=== PATIENT | male | born 1945 | race Caucasian/White ===

== ENCOUNTER 2018-02-11 09:59 | Inpatient (IN) ==
[~2018-02-11 09:59] MED LIST: ceFAZolin 1,000 MG, Sodium Chloride IRRigation 1,000 ML IR ONE
[2018-02-11] MEDS ORDERED: Dexamethasone 4 MG/ML VIAL ONE (10:14)
[2018-02-11] MEDS ORDERED: Ondansetron 4 MG/2 ML VIAL ONE (10:14)
[2018-02-11] MEDS ORDERED: Lidocaine -MPF 4% 5 ML AMPUL ONE (10:14)
[2018-02-11] MEDS ORDERED: Lidocaine -MPF 2% 2 ML VIAL ONE (10:14)
[2018-02-11] MEDS ORDERED: *HR* Succinylcholine 200 MG/10 ML VIAL IVP ONE (10:14)
[2018-02-11] MEDS ORDERED: CeFAZolin Syr 2,000MG/20 ML 2,000 MG/20 ML SYRINGE IVPB ONE (10:15)
[2018-02-11] MEDS ORDERED: *HR* Remifentanil 2 MG VIAL IVP ONE (10:15)
[2018-02-11] MEDS ORDERED: Ringers Solution, Lactated 1,000 ML IVC SCH (10:15)
[2018-02-11] MEDS ORDERED: *HR* FentaNYL (PF) 100 MCG/2 ML VIAL ONE (10:15)
[2018-02-11] MEDS ORDERED: *HR* Propofol 200 MG/20 ML VIAL IVP ONE (10:15)
[2018-02-11] MEDS ORDERED: *HR* Phenylephrine 10 MG/ML VIAL ONE (10:16)
[2018-02-11] MEDS ORDERED: Famotidine 20 MG/2 ML VIAL IVP ONE (10:20)
[2018-02-11] MEDS ORDERED: Acetaminophen IV 1,000 MG/100 ML INFUS..BTL IVPB ONE (10:21)
--- NOTE | 2018-02-11 10:23 | Anesthesia Evaluation PreOp ---
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: Other (B-carotid stenosis) Other Medical History: Denies Any Significant HX, Other (Hx Prostate Ca s/p radiation tx) Anesthesia History: No Prior Anesthetic Complications, Past Anesthesia ( Orthopedic repairs, Skin grafts, Fem-Fem bypass, Fem-Pop bypass) Alcohol Use: none Drug use: marijuana Medications and Allergies Aspirin [Ecotrin] 325 mg PO DAILY 01/23/18 [History] Naproxen [Naprosyn] 250 mg PO BID 01/23/18 [History] Tamsulosin [Flomax] 0.4 mg PO DAILY 01/23/18 [History] hydroCHLOROthiazide [Hydrochlorothiazide] 25 mg PO DAILY 01/23/18 [History] 3 Allergy/AdvReac Type Severity Reaction Status Date / Time No Known Allergies Allergy Verified 01/23/18 06:49 - Meds/Allergy Pre-op Review Medications Reviewed: Yes Allergies Reviewed: Yes Beta Blockers on Current Med List: No Anesthesia Results - Labs Laboratory Tests 02/10/18 02/10/18 02/10/18 17:42 17:42 17:42 WBC 7.3 Hgb 12.6 L Hct 36.8 L Plt Count 277 PT 12.0 INR 1.1 APTT 33.5 Sodium 140 Potassium 4.3 Chloride 106 Carbon Dioxide 30 H BUN 21 Creatinine 0.79 Est GFR ( Amer) > 60 Glucose 100 - Imaging EKG: image reviewed (EKG dated 01/22/2018 - 48bpm SB, incomplete RBBB, septal infarct age undetermined) Anesthesia Exam O2 Sat Height 1.8 m Height 1.8 m Weight 68.039 kg Weight 68.039 kg O2 Sat by Pulse Oximetry 99 Vital Signs Temp Pulse Resp BP Pulse Ox 97.9 F 47 16 164/66 99 02/11/18 10:19 02/11/18 10:19 02/11/18 10:19 02/11/18 10:19 02/11/18 10:19 Height: 5'11" Weight: 150# BMI = 21 NPO (# of Hours): MNOc Pain Scale Used: Numeric (1 - 10) - HEENT Pupil (Motor): Pupils equal, EOMI Mallampati: II Teeth: Missing, Poor dentition ( VERY poor dentition with multiple broken, blackened, poorly aligned, wiggly teeth) Oral Opening: Less than or equal to 3 - 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 LOC: Oriented 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 Magdalena Moya MD
[2018-02-11] MEDS ORDERED: Heparin 1,000 UNITS/500 mL 500 ML ONE (10:45)
[2018-02-11] MEDS ORDERED: *HR* Promethazine 25 MG/ML VIAL IVP PRN (12:02)
[2018-02-11] MEDS ORDERED: *HR* OxyCODONE Immed Rel 5 MG TABLET PO PRN (12:02)
[2018-02-11] MEDS ORDERED: *HR* Meperidine 25 MG/ML SYRINGE IVP PRN (12:02)
[2018-02-11] MEDS ORDERED: Ondansetron 4 MG/2 ML VIAL IVP ONE ×2 (12:02→12:45)
[2018-02-11] MEDS ORDERED: Lidocaine -MPF 1% 5 ML AMPUL ONE (12:52)
--- NOTE | 2018-02-11 12:54 | History & Physical Report ---
Date of Encounter: 02/11/18 Time of Encounter: 12:40 24 Hour HP Update - Instructions Instructions: If the History and Physical is less than 30 days old and was completed prior to A.M. admission and or procedure and has NOT been updated on calendar day of procedure please complete this update prior to performing procedure. - Update Patient reports changes in Medical Condition: No Changes in examination, assessment, or condition: No Changes in Medication: No Preop tests/diagnostics Reviewed: Yes Surgery Remains Indicated: Yes Consent for Planned Operative Procedure(s) Verified: Yes - Pre-Operative Checklist Preoperative Checklist Indicated: Yes Prophylactic Antibiotic Ordered: Yes Home Medications Include Beta Radha: No Beta Radha Taken Today (Day of Surgery): No Beta Radha Taken Yesterday (Day Prior to Surgery): No Is VTE Prophylaxis Indicated?: Yes
[2018-02-11] MEDS ORDERED: EPHEDrine 50 MG/ML VIAL ONE (13:47)
[2018-02-11] MEDS ORDERED: *HR* Heparin 5,000 UNIT/ML VIAL ONE (14:05)
--- NOTE | 2018-02-11 16:05 | Operative Note ---
Date of procedure: 02/11/18 Pre-op diagnosis: bilateral carotid disease Post-op diagnosis: same Procedure: left carotid endarterectomy with 8 Fr shunt and bovine patch angioplasty Complications: 0 Anesthesia: GETA Surgeon: Oleg Astorga Was there an assistant product manager present: No Estimated blood loss (cc): 100 Specimen: 0 Condition: stable Disposition: PACU Procedure in Detail: History Melo Dawson is a 72-year-old white male who was seen in consultation because of an abnormal carotid duplex scan. The patient had an attempted carotid angiogram but this was not completed due to anatomic difficulties due to the femoral- femoral bypass graft. He then went on to have a CT and exam of the neck. This demonstrated an 85% left internal carotid artery stenosis. The patient had a 60 % right carotid stenosis. The patient now comes the operating room for left carotid surgery. Procedure After informed consent was obtained the patient was taken to the operating room. General endotracheal anesthesia was established under arterial line pressure monitoring. The left neck was sterilely prepped and draped. A timeout protocol was observed. An oblique incision was then made anterior to the anterior border of the left sternocleidomastoid muscle. Dissection was carried down to the carotid sheath. This was then opened. The nerve structures were identified and preserved. The carotid artery and its branches were selectively dissected and controlled with vessel loops. 5000 units heparin was then given intravenously. A 3 minute delay was observed. Then the internal carotid artery was clamped and then this was followed by the external and the common carotid artery. A longitudinal arteriotomy with 11 blade knife and Lay scissors was made over the distal common carotid artery with extension through the bulb into the internal carotid. An 8 Romansh shunt was then inserted atraumatically. Patency of the shunt was confirmed by the use of intraoperative Doppler. Inspection of the plaque revealed a soft heterogeneous plaque that was extensive in the bulbar area and proximal internal carotid artery. The dissection was begun at the distal aspect of the common carotid artery. A dissection plane was established circumferentially and then this was carried proximally and distally. The orifice of the superior thyroid and external carotid artery were endarterectomized. The endarterectomy was carried up on into the internal carotid. No tacking sutures were necessary. The bed of the vessel was then inspected. This area was irrigated with a copious amount of heparinized saline. A bovine pericardial patch angioplasty was then performed and this was sewn into position using 2 6-0 Prolene sutures. Leaving a small space open on the suture line the shunt was clamped and divided and removed. The final few sutures were placed. The internal carotid artery was allowed to backflush and was reclamped. Then the external and common carotid arteries were opened. The internal was then finally reopened. There is no hemodynamic distress with this maneuver. Excellent pulses and Doppler signals were identified throughout the carotid system. The wound was then irrigated with antibiotic-containing solution. Hemostasis was achieved. A superficial cervical block using half percent Marcaine was performed. The wound was then closed in layers using absorbable suture. There were no intraoperative complications. The patient tolerated the procedure well. The patient was extubated on the operating room table and was found to be neurologically intact. He was then taken to the recovery room in stable condition.
--- NOTE | 2018-02-11 17:00 | Anesthesia Evaluation Post Op ---
Date of Encounter: 02/11/18 Time of Encounter: 16:59 - Vital Signs Vital Signs: Vital Signs/O2 Sat/Glucose, Most Recent Temp Pulse Resp BP Pulse Ox 97.3 F L 61 16 185/85 97 02/11/18 16:36 02/11/18 16:46 02/11/18 16:46 02/11/18 16:46 02/11/18 16:46 - Lungs Lungs: Clear Ascult./Percussion - Airway Airway: Non-obstructed - Cardiovascular Regular Rate, Baseline Rhythm - Mental Status Mental Status: Alert & Oriented, Answers Appropriately - Pain Pain Scale: 0 Pain Scale used: Numeric (1 - 10) - Nausea Vomiting Nausea Vomiting: Not Present - Hydration Hydration: Tolerates oral liquids, Corado catheter Notes: 02/11/18 17:00 naac - Discharge PostOp Status: Transfer Patient to floor
[2018-02-11] MEDS ORDERED: *HR* HYDROcodone/Acet 5/325 mg TABLET PO PRN (17:22)
[2018-02-11] MEDS ORDERED: Acetaminophen 325 MG TABLET PO PRN (17:22)
[2018-02-11] MEDS ORDERED: Naloxone 0.4 MG/ML INJ IVP PRN (17:22)
[2018-02-11] MEDS ORDERED: *HR* Labetalol 20 MG/4 ML SYRINGE IVP PRN (17:22)
[2018-02-11] MEDS: Ondansetron 4 MG/2 ML VIAL IVP PRN (20:32)
[2018-02-12] MEDS: Ondansetron 4 MG/2 ML VIAL IVP PRN (03:49)
[2018-02-12 06:34] LABS: Basophils % 0.2 %; Hematocrit 33.3 % (37.5-50.1); Hemoglobin 11.7 g/dL (12.9-16.9); Immature Granulocytes % 0.3 % (0-4); Lymphocytes # 1.5 K/mcL (0.6-4.6); Lymphocytes % 9.9 %; Mean Corpuscular HGB Conc 35.1 g/dL (31.6-35.5); Mean Corpuscular Hemoglobin 31.1 pg (28.0-33.3); Mean Corpuscular Volume 88.6 fL (83.0-100.0); Mean Platelet Volume 11.5 fL (9.4-12.4); Monocytes # 1.5 K/mcL (0.0-1.3); Monocytes % 10.3 %; Neutrophils # 11.8 K/mcL (1.6-8.9); Platelet Count 287 K/mcL (140-400); Red Blood Count 3.76 M/mcL (4.19-5.50); Red Cell Distribution Width 13.6 % (11.5-14.5); Segmented Neutrophils % 79.3 %
[2018-02-12 06:56] LABS: Blood Urea Nitrogen 23 mg/dL (8-23); Calcium 9.2 mg/dL (8.6-10.3); Carbon Dioxide 25 mEq/L (23-29); Chloride 103 mEq/L (98-107); Glucose 130 mg/dL (70-105); Osmolality,Calculated 289 (280-300); Potassium 3.2 mEq/L (3.5-5.1); Sodium 137 mEq/L (136-145)
[2018-02-12 07:42] LABS: BUN/Creatinine Ratio 39 (6-26); eGFR For Non-African Americans > 60 (> 60)
[2018-02-12] MEDS ORDERED: Ondansetron 4 MG/2 ML VIAL IVP PRN (08:12)
[2018-02-12] MEDS ORDERED: Aspirin Enteric Coated 325 MG Tablet PO SCH (09:00)
[2018-02-12] MEDS ORDERED: hydroCHLOROthiazide 25 MG TABLET PO SCH (09:00)
[2018-02-12] MEDS ORDERED: Potassium Chloride 20 MEQ, Lidocaine 1% 2 ML in D5% in Water 250 ML IVPB ONE (12:58)
[2018-02-12 16:54] VITALS: BP 167/81
--- NOTE | 2018-02-12 18:04 | Discharge Summary ---
Date of Encounter: 02/12/18 Time of Encounter: 18:01 - Discharge Diagnosis (1) Carotid artery stenosis Priority: Primary Status: Acute Comments: Patient has significant carotid artery disease greater on the left side and the right. Patient was admitted for left carotid endarterectomy. Qualifiers: Laterality: bilateral Qualified Code(s): I65.23 - Occlusion and stenosis of bilateral carotid arteries (2) Hypertension Priority: Secondary Status: Chronic Comments: Patient has chronic hypertension Qualifiers: Hypertension type: essential hypertension Qualified Code(s): I10 - Essential (primary) hypertension (3) Tobacco use Priority: Secondary Status: Chronic Comments: History of chronic tobacco use - Hospital Course Hospital course: Mr. Dawson is a 72 year old male With significant carotid artery disease. This was identified by duplex scanning. It was confirmed by CTA which demonstrated an 85% left internal carotid artery stenosis and approximately 6070% right carotid stenosis. Patient was admitted for left carotid endarterectomy at this time. The operation was performed without difficulty. The patient did develop ecchymosis along the neck and upper chest postoperatively. He had no neurologic deficits. He was feeling well. He was felt fit for discharge on the afternoon of postoperative day #1. - Time Spent with Patient Total time spent providing and/or coordinating discharge services: - Discharge Medications Home Medications: Aspirin [Ecotrin] 325 mg PO DAILY 01/23/18 [History] Naproxen [Naprosyn] 250 mg PO BID 01/23/18 [History] Tamsulosin [Flomax] 0.4 mg PO DAILY 01/23/18 [History] hydroCHLOROthiazide [Hydrochlorothiazide] 25 mg PO DAILY 01/23/18 [History] Allergies/Adverse Reactions: 3 Allergy/AdvReac Type Severity Reaction Status Date / Time No Known Allergies Allergy Verified 02/12/18 08:02 Date of admission: 02/11/18 17:19 [facility] care physician: [facility] Consults: None Procedure(s) Performed: Left carotid endarterectomy with bovine pericardial patch angioplasty Discharging clinician: Oleg Astorga Anticipated date of discharge: 02/12/18 Exam Vital Signs, Last 4 Hours Temp Pulse Resp BP Pulse Ox 02/12/18 16:51 98.2 F 83 18 167/81 95 General: Present: Conversant, No Apparent Distress HEENT: Present: Trachea midline Neck: Absent: JVD Cardiac: Present: Reg Rate and Rhythm Lungs: Present: Decreased breath sounds Neuro: Present: Alert and responsive, No focal deficits noted, Cranial nerves grossly intact, Motor nerves grossly intact, Sensory nerves grossly intact Vascular: Present: Surgical incisions (Ecchymosis around left neck and supraclavicular region) - Patient Status Disposition: Home, Self-Care Condition: Good Functional capacity at discharge: independent ambulation Overall status at discharge: patient is progressing back to baseline - Discharge Instructions Follow Up With: SDPCP [Primary Care Provider] - 02/24/18 11:30 am (SD wanted me to remind you that you have a [facility] appointment on 02-13 @ 3196 Please Fax Operation report, and discharge summary to [facility] team . Thanks) Oleg Astorga MD [Partnered Physician] - 03/05/18 9:45 am Additional Instructions: Keep left neck surgical site dry for total of 5 days following surgery Use ice pack on the left neck for the next 2 days No driving. No lifting greater than 10 pounds. No manual labor. Resume usual home medications. Using incentive spirometer at home 10 times an hour awake for the next 2 weeks then discard the spirometer. - Diet and Activity Activity: increase activity as tolerated Diet: low fat, low cholesterol
== END 2018-02-12 19:45 | disposition home or self-care (01) | DRG 39 ==
LOC: SAMDAY 09:59 → 2NNU 17:19
PROVIDERS: ADMIT Surgery Vascular Surgery; ATTEND Surgery Vascular Surgery